=== PATIENT | male | born 1985 | race Hispanic/Latino ===

== ENCOUNTER 2019-10-19 17:35 | Emergency (ER) | payer SELFPAY ==
--- NOTE | 2019-10-19 19:09 | ER ---
Nurse's Notes [facility] Name: Henry Hannah Age: 33 yrs Sex: Male : 1985 Arrival Date: 10/19/2019 Time: 17:37 Bed 23 Private MD: Diagnosis: Other viral enteritis Presentation: 10/19 17:42 Presenting complaint: Patient states: Abdominal pain, nausea, vomiting, diarrhea ca1 started yesterday. Denies fever. Transition of care: patient was not received from another setting of care. Onset of symptoms was October 19, 2019. Risk Assessment: Do you want to hurt yourself or someone else? Patient reports no desire to harm self or others. Initial Sepsis Screen: Does the patient meet any 2 criteria? No. Patient's initial sepsis screen is negative. Does the patient have a suspected source of infection? No. Patient's initial sepsis screen is negative. Care prior to arrival: None. 17:42 Method Of Arrival: Ambulatory ca1 17:42 Acuity: BONILLA 3 ca1 Historical: - Allergies: 17:44 No Known Allergies; ca1 - Home Meds: 17:44 None [Active]; ca1 - PMHx: 17:44 Diabetes - NIDDM; ca1 - PSHx: 17:44 None; ca1 - Immunization history:: Adult Immunizations up to date, Flu vaccine is not up to date. - Coronavirus screen:: The patient has NOT traveled to [place] in the past 14 days. The patient has NOT had contact with known/suspected case of Coronavirus?. - Social history:: Smoking status: Patient denies any tobacco usage or history of. - Ebola Screening: : Patient negative for fever greater than or equal to 101.5 degrees Fahrenheit, and additional compatible Ebola Virus Disease symptoms Patient denies exposure to infectious person Patient denies travel to an Ebola-affected area in the 21 days before illness onset No symptoms or risks identified at this time. Vital Signs: 17:44 BP 104 / 81; Pulse 94; Resp 16 S; Temp 98.3(O); Pulse Ox 99% on R/A; Weight 99.34 kg ca1 (R); Height 5 ft. 7 in. (170.18 cm) (R); 17:44 Body Mass Index 34.30 (99.34 kg, 170.18 cm) ca1 ED Course: 17:37 Patient arrived in ED. rg4 17:43 Triage completed. ca1 17:44 Arm band placed on right wrist. ca1 18:42 Marysol Duarte, ANGELA is Primary Nurse. vc 18:44 Troy Alas MD is Attending Physician. tw4 19:21 Primary Nurse role handed off by Marysol Duarte RN tw4 Administered Medications: 19:16 Drug: Bentyl 20 mg Route: IM; Site: Other; vc 19:16 Drug: Zofran 4 mg Route: PO; vc Outcome: 19:09 Discharge ordered by . tw4 19:17 Patient left the ED. vc 19:23 Patient left the ED. tw4 Signatures: Karin Hannah rg4 Troy Alas MD MD tw4 Pham Landers RN RN ca1 Marysol Duarte RN RN vc
--- NOTE | 2019-10-19 19:09 | EDPHYS ---
Physician Documentation [facility] Name: Henry Hannah Age: 33 yrs Sex: Male : 1985 Arrival Date: 10/19/2019 Time: 17:37 Bed 23 Private MD: ED Physician Troy Alas HPI: 10/19 20:30 This 33 yrs old Male presents to ER via Ambulatory with complaints of tw4 Abdominal Pain, Nausea. 20:30 The patient presents to the emergency department with nausea, that is mild, diarrhea, tw4 Onset: The symptoms/episode began/occurred today. Possible causes: unknown. The symptoms are aggravated by nothing. The symptoms are alleviated by nothing. Associated signs and symptoms: The patient has no apparent associated signs or symptoms. Severity of symptoms: At their worst the symptoms were. The patient has not experienced similar symptoms in the past. Historical: - Allergies: 17:44 No Known Allergies; ca1 - Home Meds: 17:44 None [Active]; ca1 - PMHx: 17:44 Diabetes - NIDDM; ca1 - PSHx: 17:44 None; ca1 - Immunization history:: Adult Immunizations up to date, Flu vaccine is not up to date. - Coronavirus screen:: The patient has NOT traveled to [place] in the past 14 days. The patient has NOT had contact with known/suspected case of Coronavirus?. - Social history:: Smoking status: Patient denies any tobacco usage or history of. - Ebola Screening: : Patient negative for fever greater than or equal to 101.5 degrees Fahrenheit, and additional compatible Ebola Virus Disease symptoms Patient denies exposure to infectious person Patient denies travel to an Ebola-affected area in the 21 days before illness onset No symptoms or risks identified at this time. ROS: 20:30 Constitutional: Negative for fever, chills, and weight loss, Eyes: Negative for injury, tw4 pain, redness, and discharge, Cardiovascular: Negative for chest pain, palpitations, and edema, Respiratory: Negative for shortness of breath, cough, wheezing, and pleuritic chest pain, Back: Negative for injury and pain, MS/Extremity: Negative for injury and deformity, Skin: Negative for injury, rash, and discoloration, Neuro: Negative for headache, weakness, numbness, tingling, and seizure. 20:30 Abdomen/GI: Positive for abdominal pain, diarrhea, Negative for nausea and vomiting, nausea, vomiting, and diarrhea, nausea, vomiting, anorexia, dysphagia, hematemesis, black/tarry stool, rectal pain, rectal bleeding, bowel incontinence, flatulence. Exam: 20:30 Constitutional: This is a well developed, well nourished patient who is awake, alert, tw4 and in no acute distress. Head/Face: Normocephalic, atraumatic. Chest/axilla: Normal chest wall appearance and motion. Nontender with no deformity. No lesions are appreciated. Cardiovascular: Regular rate and rhythm with a normal S1 and S2. No gallops, murmurs, or rubs. Normal PMI, no JVD. No pulse deficits. Respiratory: Lungs have equal breath sounds bilaterally, clear to auscultation and percussion. No rales, rhonchi or wheezes noted. No increased work of breathing, no retractions or nasal flaring. Abdomen/GI: Soft, non-tender, with normal bowel sounds. No distension or tympany. No guarding or rebound. No evidence of tenderness throughout. Back: No spinal tenderness. No costovertebral tenderness. Full range of motion. MS/ Extremity: Pulses equal, no cyanosis. Neurovascular intact. Full, normal range of motion. Neuro: Awake and alert, GCS 15, oriented to person, place, time, and situation. Cranial nerves II-XII grossly intact. Motor strength 5/5 in all extremities. Sensory grossly intact. Cerebellar exam normal. Normal gait. Vital Signs: 17:44 BP 104 / 81; Pulse 94; Resp 16 S; Temp 98.3(O); Pulse Ox 99% on R/A; Weight 99.34 kg ca1 (R); Height 5 ft. 7 in. (170.18 cm) (R); 17:44 Body Mass Index 34.30 (99.34 kg, 170.18 cm) ca1 MDM: 18:44 Patient medically screened. tw4 20:30 Differential diagnosis: Nonspecific abd pain, gastritis, cholecystitis, pancreatitis. tw4 Data reviewed: vital signs, nurses notes. Data interpreted: Pulse oximetry: Interpretation: normal. Counseling: I had a detailed discussion with the patient and/or guardian regarding: the historical points, exam findings, and any diagnostic results supporting the discharge/admit diagnosis. Special discussion: I discussed with the patient/guardian in detail that at this point there is no indication for admission to the hospital. It is understood, however, that if the symptoms persist or worsen the patient needs to return immediately for re-evaluation. Administered Medications: 19:16 Drug: Bentyl 20 mg Route: IM; Site: Other; vc 19:16 Drug: Zofran 4 mg Route: PO; vc Disposition: 10/19/19 19:09 Discharged to Home. Impression: Other viral enteritis. - Condition is Stable. - Discharge Instructions: Viral Gastroenteritis, Adult, [id number]. - Prescriptions for Bentyl 20 mg Oral Tablet - take 1 tablet by ORAL route every 6 hours As needed; 20 tablet. Zofran 4 mg Oral Tablet - take 1 tablet by ORAL route every 12 hours As needed; 6 tablet. Lomotil 2.5- 0.025 mg Oral Tablet - take 1 tablet by ORAL route every 6 hours As needed; 20 tablet. - Work release form, Medication Reconciliation Form, Thank You Letter, Antibiotic Education, Prescription Opioid Use form. - Follow up: Private Physician; When: Upon discharge from the Emergency Department; Reason: If symptoms return, Recheck today's complaints, Continuance of care, Re-evaluation by your physician. - Problem is new. - Symptoms have improved. Signatures: Troy Alas MD MD tw4 Pham Landers RN RN [facility] Marysol Duarte RN RN vc Corrections: (The following items were deleted from the chart) 19:17 19:09 10/19/2019 19:09 Discharged to Home. Impression: Other viral enteritis. Condition vc is Stable. Forms are Medication Reconciliation Form, Thank You Letter, Antibiotic Education, Prescription Opioid Use. Follow up: Private Physician; When: Upon discharge from the Emergency Department; Reason: If symptoms return, Recheck today's complaints, Continuance of care, Re-evaluation by your physician. Problem is new. Symptoms have improved. tw4 19:23 19:17 10/19/2019 19:09 Discharged to Home. Impression: Other viral enteritis. Condition tw4 is Stable. Discharge Instructions: Viral Gastroenteritis, Adult, [id number]. Prescriptions for Bentyl 20 mg Oral Tablet - take 1 tablet by ORAL route every 6 hours As needed; 20 tablet, Zofran 4 mg Oral Tablet - take 1 tablet by ORAL route every 12 hours As needed; 6 tablet, Lomotil 2.5-0.025 mg Oral Tablet - take 1 tablet by ORAL route every 6 hours As needed; 20 tablet. and Forms are Medication Reconciliation Form, Thank You Letter, Antibiotic Education, Prescription Opioid Use. Follow up: Private Physician; When: Upon discharge from the Emergency Department; Reason: If symptoms return, Recheck today's complaints, Continuance of care, Re-evaluation by your physician. Problem is new. Symptoms have improved. vc
[2019-10-19] MEDS ORDERED: ONDANSETRON 4 MG (ODT) TAB ONE (19:16)
[2019-10-19] MEDS ORDERED: DICYCLOMINE HCL 10 MG CAP ONE (19:16)
[2019-10-19 19:58] VITALS: BP 104/81; TEMP 98.3; O2SAT 99
== END 2019-10-19 19:23 | disposition home or self-care (01) ==
LOC: ER 17:35
DX: A08.39 Other viral enteritis (principal)
CPT/HCPCS: 96372; 99282